=== PATIENT | female | born 1985 | race African-American/Black ===

== ENCOUNTER 2021-01-05 09:51 | Emergency (ER) | payer OTHER ==
[~2021-01-05] VITALS: Ht 182.9 cm; Wt 69.0 kg
[2021-01-05 09:56] VITALS: BP 115/65
[2021-01-05] MEDS ORDERED: FLUORESCEIN SODIUM 1MG/STRIP BOTHEYE ONE (10:45)
[2021-01-05] MEDS ORDERED: TETRACAINE 0.5% OPHTH DROPS 4ML BOTHEYE ONE (10:45)
[2021-01-05] MEDS ORDERED: ACYC200C31 MT (11:38)
[2021-01-05] MEDS ORDERED: TRAM50TA3 MT (11:38)
== END 2021-01-05 12:09 | disposition home or self-care (01) ==
LOC: ER 09:51
DX: B02.9 Zoster without complications (principal)
CPT/HCPCS: 99283